=== PATIENT | male | born 1980 | race Caucasian/White ===

== ENCOUNTER 2016-10-28 16:27 | Emergency (ER) | payer OTHER ==
[2016-10-28 16:39] VITALS: BP 113/71; PULSE 56; RESP 16; TEMP 98.2; O2SAT 96
[2016-10-28] MEDS ORDERED: CARBAMIDE PEROXIDE 15 ML BOTTLE EACHEAR ONE (16:42)
--- NOTE | 2016-10-28 18:09 | UCPHY ---
H & P Time Seen by Provider: 10/28/16 17:21 Patient Type: New HPI/ROS: CHIEF COMPLAINT: Can't hear HISTORY OF PRESENT ILLNESS: 35-year-old male presents to the urgent care complaining that he can' t hear out of his left ear. The patient has had problems with wax buildup in the past. He denies any known trauma or injury. Denies pain in his ears. Denies URI symptoms. No treatment at home. ROS: Denies drainage from the ears, foreign body, URI symptoms. Past Medical/Surgical History: Negative Social History: Smoking Status: Never smoked Physical Exam: On examination the patient is in no apparent distress. Bilateral cerumen impaction noted. Initially unable to see tympanic membranes. Neck is supple without pre or postauricular lymphadenopathy. Neck is supple. Constitutional: Initial Vital Signs Temperature (C) 36.8 C 10/28/16 16:36 Heart Rate 56 L 10/28/16 16:36 Respiratory Rate 16 10/28/16 16:36 Blood Pressure 113/71 10/28/16 16:36 O2 Sat (%) 96 10/28/16 16:36 O2 Delivery Mode Room Air Allergies/Adverse Reactions: No Known Allergies Allergy (Verified 10/28/16 16:38) Home Medications: Medication Instructions Recorded Prozac 10 MG (*) 10/28/16 MDM/Departure - MDM Medications Given: Discontinued Medications Carbamide Peroxide (Debrox) 5 drop EACHEAR EDNOW ONE Stop: 10/28/16 16:43 Last Admin: 10/28/16 16:50 Dose: 5 drops ED Course/Re-evaluation: 35-year-old male presents with bilateral cerumen impaction. The nurse had already applied Debrox drops to the ears. The ears were easily irrigated. The patient had immediate relief. His tympanic membranes bilaterally were clear. Patient is comfortable being discharged home. We discussed maintenance medications including Debrox or Cerumenex [id number]. - Depart Disposition: Home, Routine, Self-Care Clinical Impression: Impacted cerumen of both ears Condition: Good Instructions: Cerumen Impaction (ED) Additional Instructions: Make sure your ears are dry tonight before you go to bed as to not create an outer ear infection. You may try using [id number] Debrox or Cerumenex for maintenance as directed. Referrals: Sujey Baum DO [Doctor of Osteopathy] - 5-7 days, if not improved (Primary care provider contact lens technician) - PQRS PQRS Measurement: Not applicable
== END 2016-10-28 18:18 | disposition home or self-care (01) ==
LOC: CED 16:27
PROC: 3E1B78Z Irrigation of Ear using Irrigating Substance, Via Natural or Artificial Opening (ICD-10-PCS; principal; 2016-10-28)
DX: H61.23 Impacted cerumen, bilateral (principal)
CPT/HCPCS: 99203-PO; G0463-PO